=== PATIENT | female | born 1955 | race Caucasian/White ===

== ENCOUNTER → 2016-12-07 | Outpatient (CLI) | payer MEDICARE, MEDICAID ==
[~2016-12-07] MED LIST: DIAZ5 PO; FLUT1SPR5 EACH NARE; HYDR-2376 PO; OXYC1TAB36 PO; PROZ20CA11 PO; SPIRCAP INH; SYMB80AE INH; VENTAER INH; VITA20003
[2016-12-07 09:33] LABS: AUTOMATED NEUTROPHIL # 4.8 TH/MM3 (1.8-7.7); BASOPHIL # 0.1 TH/MM3 (0-0.2); BASOPHIL % 1.3 % (0.0-2.0); EOSINOPHIL # 0.2 TH/MM3 (0-0.4); EOSINOPHIL % 3.1 % (0.0-4.0); HEMO FLAGS DIFF FINAL; LYMPH % 21.9 % (9.0-44.0); LYMPHOCYTE # 1.7 TH/MM3 (1.0-4.8); MEAN CELL VOLUME 88.8 FL (80.0-100.0); MEAN CORPUSCULAR HEMOGLOBIN 31.5 PG (27.0-34.0); MEAN CORPUSCULAR HGB CONC 35.5 % (32.0-36.0); MONO % 10.3 % (0.0-8.0); NEUT % 63.4 % (16.0-70.0); PLATELET COUNT 300 TH/MM3 (150-450); RED BLOOD COUNT 4.28 MIL/MM3 (4.00-5.30); RED CELL DISTRIBUTION WIDTH 12.7 % (11.6-17.2); WHITE BLOOD COUNT 7.7 TH/MM3 (4.0-11.0)
[2016-12-07 10:36] LABS: BACTERIA, URINE RARE /hpf; BLOOD, URINE NEG (NEG); COMMENT (UR) CULT NOT INDICATED; CULTURE IF INDICATED CULT NOT INDICATED; GLUCOSE,URINE NEG (NEG); KETONE, URINE NEG (NEG); MUCUS URINE FEW /lpf (OCC); NITRITE,URINE NEG (NEG); SQUAMOUS EPITHELIAL CELL URINE 1 /hpf (0-5); URINE COLOR YELLOW (YELLW/STRAW)
[2016-12-07 10:37] LABS: ALKALINE PHOSPHATASE 57 U/L (45-117); ALT (GPT) 29 U/L (10-53); ANION GAP 7 MEQ/L (5-15); AST (GOT) 29 U/L (15-37); BICARBONATE 31.1 MEQ/L (21.0-32.0); BLOOD UREA NITROGEN 11 MG/DL (7-18); CHLORIDE 101 MEQ/L (98-107); GLOMERULAR FILTRATION RATE 66 ML/MIN (>89); GLUCOSE,FASTING 96 MG/DL (74-99); LDL CHOLESTEROL 85 MG/DL (0-99); POTASSIUM 4.4 MEQ/L (3.5-5.1); SODIUM (NA) 139 MEQ/L (136-145); TOTAL BILIRUBIN ADULT 0.5 MG/DL (0.2-1.0)
== END ==
LOC: CLAB 08:52
DX: E78.00 Pure hypercholesterolemia, unspecified (principal); I10 Essential (primary) hypertension; E55.9 Vitamin D deficiency, unspecified; R53.1 Weakness; Z12.12 Encounter for screening for malignant neoplasm of rectum; Z79.899 Other long term (current) drug therapy
CPT/HCPCS: 36415; 80053; 80061; 81001; 82306; 82607; 84443; 85025

== ENCOUNTER → 2016-12-11 | Outpatient (CLI) | payer MEDICARE, MEDICAID | LOC: CLAB 13:10 | DX: E78.00 Pure hypercholesterolemia, unspecified (principal); I10 Essential (primary) hypertension; R53.1 Weakness; E55.9 Vitamin D deficiency, unspecified; Z12.12 Encounter for screening for malignant neoplasm of rectum; Z79.899 Other long term (current) drug therapy | CPT/HCPCS: 82272 ==

== ENCOUNTER 2017-02-27 12:22 | Inpatient (IN) | payer MEDICARE, MEDICAID ==
[~2017-02-27] VITALS: Ht 160 cm; Wt 62.3 kg
[2017-02-27] VITALS (7 sets, daily range): BP systolic 148–183; BP diastolic 70–96; PULSE 63–81; RESP 18–22; TEMP 97.7–98.5; O2SAT 95–97
[~2017-02-27 12:22] MED LIST changes: -VITA20003; +VITA20003 PO
--- NOTE | 2017-02-27 12:29 | PD ---
Physical Exam Time Seen by Provider: 12:28 Narrative 61 y/o female with L sided chest tightness, L arm pain, L arm/leg numbness which started at 8 AM. Vital signs reviewed. Seen at triage desk. Awaiting bed placement. Data Data Last Documented VS Vital Signs Date Time Temp Pulse Resp B/P Pulse Ox O2 Delivery O2 Flow Rate FiO2 02/27/17 12:24 98.5 81 18 161/[address] [facility] Medical Record Reviewed: Yes Supervised Visit with MICHELLE: Benjamin Rocha Feb 27, 2017 12:29
[2017-02-27] MEDS ORDERED: SODIUM CHLORIDE 0.9% FLUSH 10 ML FLUSH IVF PRN (13:00)
--- NOTE | 2017-02-27 13:03 | PD ---
HPI Chief Complaint: Chest Pain Time Seen by Provider: 12:46 Travel History International Travel<30 days: No Contact w/Intl Traveler<30days: No Traveled to known affect area: No History of Present Illness HPI The patient was seen and examined in the presence of the nurse. This patient woke up this morning and reports having numbness of her left arm and left leg as well as weakness of her left arm and leg. Symptoms have sort of waxed and waned over the last few hours. Yesterday when she went to bed she felt fine. No history of CVA or TIA. She also reports that this morning she had left shoulder discomfort and tightness in the left side of her chest. Symptoms are of moderate severity. No alleviating factors. Duration is unknown as she woke up this way but it's been at least 5 hours PFSH Past Medical History Cancer: No Cardiovascular Problems: No Diabetes: No Endocrine: No Gastrointestinal Disorders: No Genitourinary: No Hepatitis: No Hiatal Hernia: No Immune Disorder: No Musculoskeletal: Yes (OA) Neurologic: Yes (UNSTEADY GAIT, SHOOTING PAINS DOWN SHOULDER) Reproductive: No Respiratory: Yes Thyroid Disease: No ?: Not Past Surgical History Body Medical Devices: BREAST IMPANTS Genitourinary Surgery: Yes (BLADDER TACK) Gynecologic Surgery: Yes (PAH) Hysterectomy: Yes Social History Alcohol Use: Yes Tobacco Use: No Substance Use: No Allergies-Medications (Allergen,Severity, Reaction): Coded Allergies: Nonsteroidal Anti-Inflammatory Agts (Verified Allergy, Unknown, 02/27/17) Reported Meds & Prescriptions Reported Meds & Active Scripts Active Reported Losartan (Losartan Potassium) 25 Mg Tab 25 Mg PO DAILY Zocor (Simvastatin) 20 Mg Tab 20 Mg PO DAILY Hydrocodone-Acetaminophen 7.5-300 Mg Tab 1 Tab PO Q8HR PRN Vitamin D (Cholecalciferol) 2,000 Unit Tab 2,000 Units PO DAILY Flonase Nasal [place] (Fluticasone Nasal [place]) 50 Mcg/Act [place] 50 Mcg EACH NARE BID Valium (Diazepam) 5 Mg Tab 5 Mg PO BID Symbicort Inh (Budesonide/Formoterol Fumarate) 80-4.5 Mcg/Act Aero 2 Puff INH Q12HR Prozac (Fluoxetine HCl) 20 Mg Cap 20 Mg PO DAILY Spiriva Handihaler (Tiotropium Inh) 18 Mcg Cap 18 Mcg INH DAILY 1 capsule = 18 mcg Ventolin Hfa 18 GM Inh (Albuterol Sulfate) 90 Mcg/Act Aer 2 Puff INH Q4H PRN Review of Systems General / Constitutional: No: Fever Eyes: No: Visual changes HENT: No: Headaches Cardiovascular: Positive: Chest Pain or Discomfort Respiratory: No: Shortness of Breath Gastrointestinal: No: Abdominal Pain Genitourinary: No: Dysuria Musculoskeletal: Positive: Weakness, No: Pain Skin: No Rash Neurologic: Positive: Weakness, Sensory Disturbance Psychiatric: No: Depression Endocrine: No: Polydipsia Hematologic/Lymphatic: No: Easy Bruising Physical Exam Narrative GENERAL: Well-nourished, well-developed patient in no apparent distress. SKIN: Focused skin assessment reveals no rash and nodules. Skin is Warm and dry. HEAD: Atraumatic. Normocephalic. EYES: Pupils equal and round. No scleral icterus. No injection or drainage. ENT: No nasal bleeding or discharge. Mucous membranes pink and moist. NECK: Trachea midline. No JVD. CARDIOVASCULAR: Regular rate and rhythm. No murmur appreciated. RESPIRATORY: No accessory muscle use. Clear to auscultation. Breath sounds equal bilaterally. GASTROINTESTINAL: Abdomen soft, non-tender, nondistended. Hepatic and splenic margins not palpable. MUSCULOSKELETAL: No obvious deformities. No clubbing. No cyanosis. No edema. NEUROLOGICAL: Awake and alert. No obvious cranial nerve deficits. Motor exam reveals symmetric upper extremity strength but there is mild left leg weakness compared to the right. She reports subjective sensory deficit to sharp and light touch over the left leg and foot. Normal speech. PSYCHIATRIC: Appropriate mood and affect; insight and judgment normal. Data Data Last Documented VS Vital Signs Date Time Temp Pulse Resp B/P Pulse Ox O2 Delivery O2 Flow Rate FiO2 02/27/17 14:24 72 19 161/77 95 Room Air 02/27/17 12:24 98.5 Orders Electrocardiogram (02/27/17 12:57) Prothrombin Time / Inr (Pt) (02/27/17 12:57) Act Partial Throm Time (Ptt) (02/27/17 12:57) Complete Blood Count With Diff (02/27/17 12:57) Basic Metabolic Panel (Bmp) (02/27/17 12:57) Creatine Kinase (Cpk) (02/27/17 12:57) Troponin I (02/27/17 12:57) Ct Brain W/O Iv Contrast(Rout) (02/27/17 12:57) Chest, Single Ap (02/27/17 12:57) Ecg Monitoring (02/27/17 12:57) Iv Access Insert/Monitor (02/27/17 12:57) Oximetry (02/27/17 12:57) Blood Glucose (02/27/17 12:57) Sodium Chloride 0.9% Flush (Ns Flush) (02/27/17 13:00) Aspirin (Aspirin) (02/27/17 14:45) Labs Laboratory Tests Test 02/27/17 13:00 White Blood Count 8.8 TH/MM3 Red Blood Count 4.48 MIL/MM3 Hemoglobin 13.4 GM/DL Hematocrit 39.3 % Mean Corpuscular Volume 87.8 FL Mean Corpuscular Hemoglobin 30.0 PG Mean Corpuscular Hemoglobin 34.2 % Concent Red Cell Distribution Width 12.8 % Platelet Count 289 TH/MM3 Mean Platelet Volume 7.7 FL Neutrophils (%) (Auto) 66.2 % Lymphocytes (%) (Auto) 23.4 % Monocytes (%) (Auto) 8.1 % Eosinophils (%) (Auto) 1.8 % Basophils (%) (Auto) 0.5 % Neutrophils # (Auto) 5.8 TH/MM3 Lymphocytes # (Auto) 2.1 TH/MM3 Monocytes # (Auto) 0.7 TH/MM3 Eosinophils # (Auto) 0.2 TH/MM3 Basophils # (Auto) 0.0 TH/MM3 CBC Comment DIFF FINAL Differential Comment Prothrombin Time 11.1 SEC Prothromb Time International 1.0 RATIO Ratio Activated Partial 24.8 SEC Thromboplast Time Sodium Level 139 MEQ/L Potassium Level 3.4 MEQ/L Chloride Level 103 MEQ/L Carbon Dioxide Level 27.5 MEQ/L Anion Gap 9 MEQ/L Blood Urea Nitrogen 14 MG/DL Creatinine 0.82 MG/DL Estimat Glomerular Filtration 71 ML/MIN Rate Random Glucose 119 MG/DL Calcium Level 9.3 MG/DL Total Creatine Kinase 29 U/L Troponin I LESS THAN 0.02 NG/ML MDM Medical Decision Making Medical Screen Exam Complete: Yes Emergency Medical Condition: Yes Medical Record Reviewed: Yes Differential Diagnosis CVA, TIA, intracranial hemorrhage, ACS Narrative Course I have reviewed the patient's electronic medical record. IV placed I reviewed the EKG shows sinus rhythm with no ST elevation I reviewed the chest x-ray which is normal Extended cardiac monitoring shows sinus rhythm without ectopy CBC is normal Metabolic profile is normal CK is normal Troponin is normal Coagulation studies are normal Brain CT shows no hemorrhage. I discussed with radiologist Dr. Michael Escoto. 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 This is most likely an incidental finding and likely chronic but MRI of the brain could give further details. Dr. Scott is paged to discuss Diagnosis Primary Impression: CVA (cerebral vascular accident) Qualified Code: I63.9 - Cerebrovascular accident (CVA), unspecified mechanism Additional Impression: Chest pain Qualified Code: R07.9 - Chest pain, unspecified type Admitting Information Admitting Physician Requests: it Ralph Keith MD Feb 27, 2017 13:03
--- NOTE | 2017-02-27 13:16 | RADRPT ---
EXAM DATE/TIME: 02/27/2017 13:04 [facility] COMPARISON: No previous studies available for comparison. INDICATIONS : Left side numbness today. MEDICAL HISTORY : Chronic obstructive pulmonary disease. SURGICAL HISTORY : None. ENCOUNTER: Initial ACUITY: 1 day PAIN SCORE: 0/10 LOCATION: Bilateral chest FINDINGS: A single view of the chest demonstrates the lungs to be symmetrically aerated without evidence of mas s, infiltrate or effusion. The cardiomediastinal contours are unremarkable. No cervical vertebral f ixation hardware. Osseous structures are intact. CONCLUSION: 1. No acute cardiopulmonary disease. Valdo Chahal MD on February 27, 2017 at 13:14 Board Certified Radiologist. This report was verified electronically.
[2017-02-27 13:18] LABS: AUTOMATED NEUTROPHIL # 5.8 TH/MM3 (1.8-7.7); BASOPHIL % 0.5 % (0.0-2.0); EOSINOPHIL # 0.2 TH/MM3 (0-0.4); EOSINOPHIL % 1.8 % (0.0-4.0); HEMATOCRIT 39.3 % (35.0-46.0); HEMO FLAGS DIFF FINAL; LYMPH % 23.4 % (9.0-44.0); LYMPHOCYTE # 2.1 TH/MM3 (1.0-4.8); MEAN CELL VOLUME 87.8 FL (80.0-100.0); MEAN CORPUSCULAR HGB CONC 34.2 % (32.0-36.0); MONO % 8.1 % (0.0-8.0); NEUT % 66.2 % (16.0-70.0); PLATELET COUNT 289 TH/MM3 (150-450); RED BLOOD COUNT 4.48 MIL/MM3 (4.00-5.30); RED CELL DISTRIBUTION WIDTH 12.8 % (11.6-17.2); WHITE BLOOD COUNT 8.8 TH/MM3 (4.0-11.0)
[2017-02-27 13:28] LABS: APTT (PATIENT) 24.8 SEC (24.3-30.1); PROTHROMBIN TIME - PATIENT 11.1 SEC (9.8-11.6)
[2017-02-27 13:47] LABS: ANION GAP 9 MEQ/L (5-15); BICARBONATE 27.5 MEQ/L (21.0-32.0); BLOOD UREA NITROGEN 14 MG/DL (7-18); CHLORIDE 103 MEQ/L (98-107); GLOMERULAR FILTRATION RATE 71 ML/MIN (>89); POTASSIUM 3.4 MEQ/L (3.5-5.1); SODIUM (NA) 139 MEQ/L (136-145)
[2017-02-27] MEDS ORDERED: ZOCO20TA PO (14:02)
[2017-02-27] MEDS ORDERED: LOSA25TA PO (14:02)
[2017-02-27 14:06] LABS: CREATINE KINASE 29 U/L (26-192)
--- NOTE | 2017-02-27 14:26 | RADRPT ---
EXAM DATE/TIME: 02/27/2017 14:04 This report includes an Addendum and supersedes previous reports for this exam. [facility] COMPARISON: No previous studies available for comparison. INDICATIONS : Substernal chest tightness, with pain radiating down left arm,left face and left side numbness,fall t wo weeks ago. RADIATION DOSE: 30.44 CTDIvol (mGy) MEDICAL HISTORY : Chronic obstructive pulmonary disease. SURGICAL HISTORY : Hysterectomy. ENCOUNTER: Initial ACUITY: 1 day PAIN SCALE: 8/10 LOCATION: cranial TECHNIQUE: Multiple contiguous axial images were obtained of the head. Using automated exposure control and adj ustment of the mA and/or kV according to patient size, radiation dose was kept as low as reasonably a chievable to obtain optimal diagnostic quality images. DICOM format image data is available electro nically for review and comparison. FINDINGS: There is no evidence for intracranial hemorrhage, mass effect, mass lesions, edema, or extra-axial fl uid collections. The visualized bony structures appear intact. The ventricles are normal size for t he patient's age. There are no signs of acute infarction for technique. CONCLUSION: Unremarkable study. Sang South MD on February 27, 2017 at 14:23 Board Certified Radiologist. This report was verified electronically. ADDENDUM: I spoke with Dr. Keith about this patient. The patient has a 0.9 x 1.6 cm lipoma involving the jenny us callosum. There is a small extension of fatty density along the superior margin of the corpus call osum this could suggest previous rupture. I do not see evidence of small fat globules over the high c onvexities. MRI would be of benefit for further assessment. Tor Escoto MD on February 27, 2017 at 14:54 Board Certified Radiologist. This report was verified electronically.
[2017-02-27] MEDS ORDERED: ASPIRIN 325 MG TAB PO ONE (14:45)
[2017-02-27] MEDS ORDERED: SENNOSIDES 8.6 MG TAB PO PRN (15:45)
[2017-02-27] MEDS ORDERED: NALOXONE HCL 0.4 MG/ML AMP IV PRN (15:45)
[2017-02-27] MEDS ORDERED: SODIUM CHLORIDE 0.9% FLUSH 5 ML FLUSH IV FLUSH PRN (15:45)
[2017-02-27] MEDS ORDERED: GLUCAGON 1 MG/ML VIAL OTHER PRN (15:45)
[2017-02-27] MEDS ORDERED: DEXTROSE 50% IN WATER 50 ML VIAL(D50) IV PUSH PRN (15:45)
[2017-02-27] MEDS ORDERED: ENALAPRILAT 1.25 MG/ML VIAL IV PRN (15:45)
[2017-02-27] MEDS ORDERED: DIAZEPAM 5 MG TAB PO PRN (15:45)
[2017-02-27] MEDS ORDERED: POTASSIUM CHLORIDE 10 MEQ CONTROLLED RELEASE TAB PO ONE (15:45)
[2017-02-27] MEDS ORDERED: MAGNESIUM HYDROXIDE SUSP 30 ML CUP PO PRN (15:45)
[2017-02-27] MEDS ORDERED: ONDANSETRON HCL 4 MG/2 ML VIAL IVP PRN (15:45)
[2017-02-27] MEDS ORDERED: ACETAMINOPHEN 325 MG TAB PO PRN (15:45)
[2017-02-27] MEDS ORDERED: LACTULOSE SYRUP 20 GM/30 ML CUP PO PRN (15:45)
[2017-02-27] MEDS ORDERED: ALBUTEROL SULFATE 90 MCG/ACT HFA 18 GM INHALER INH PRN (16:00)
[2017-02-27] MEDS: INSULIN ASPART SUPPLEMENTAL SCALE SQ SCH ×2 (17:00→21:00)
[2017-02-27] MEDS: SODIUM CHLOR 0.9% 1000 ML INJ 1,000 ML IV SCH (17:06)
[2017-02-27 17:24] LABS: AMPHETAMINE, URINE NEG (NEG); BARBITURATES, URINE NEG (NEG); COCAINE, URINE NEG (NEG)
[2017-02-27 17:38] LABS: MAGNESIUM 1.9 MG/DL (1.5-2.5)
[2017-02-27 17:46] LABS: CREATINE KINASE 37 U/L (26-192)
--- NOTE | 2017-02-27 17:57 | HHI.HP ---
HPI Service [facility] Primary Care Physician Non-Staff Admission Diagnosis acute ischemic CVA, chest pain Diagnoses: Chief Complaint: Left sided weakness, numbness Travel History International Travel<30 Days: No Contact w/Intl Traveler <30 Da: No Traveled to Known Affected Are: No History of Present Illness Written by Nate Champion, acting as scribe for Dr. Scott on 02/27/17 at 17: 33. Patient is a 61-year-old female with primary medical history of hypertension, hyperlipidemia, osteoarthritis, COPD, anxiety who came into the hospital for evaluation of left-sided weakness and numbness. Patient states that this morning at around 8:00 she felt left-sided weakness, and went completely numb on the left side that she sat down thinking that it will go away. She stood up and started walking again but she felt weak. She denies any falls. Daughter states that she witnessed what had happened. But never noticed any facial droop and slurring of speech. However she noted her mother being scared and not talking as much. States she was not confused. As per patient, she also felt chest tightness at the same time with a left-sided weakness. States that chest was tight across towards the left side with left arm being tight, when the tightness occurs she rates it as 9/10. She states that she took all of her medications this morning including her blood pressure medication and cholesterol medication. Patient also verified her past medical and surgical history. She states that once being at the hospital, she felt that she is better. She now denies any numbness. Continues to have slight left sided weakness but it was improved compared to earlier today. She was able to walk to the bathroom with minimal assist and without difficulty walking. Denies pain and discomfort. Denies SOB/ dyspnea. Denies chest pain, palpitations, headaches, dizziness. Denies fevers, chills, n/v/d. Denies dysuria. Review of Systems Except as stated in HPI: all other systems reviewed are Neg Past Family Social History Past Medical History Hypertension Hyperlipidemia Osteoarthritis COPD Anxiety Scoliosis Past Surgical History Breast implants Hysterectomy Neck surgery Reported Medications Reported Meds & Active Scripts Active Reported Losartan (Losartan Potassium) 25 Mg Tab 25 Mg PO DAILY Zocor (Simvastatin) 20 Mg Tab 20 Mg PO DAILY Hydrocodone-Acetaminophen 7.5-300 Mg Tab 1 Tab PO Q8HR PRN Vitamin D (Cholecalciferol) 2,000 Unit Tab 2,000 Units PO DAILY Flonase Nasal [place] (Fluticasone Nasal [place]) 50 Mcg/Act [place] 50 Mcg EACH NARE BID Valium (Diazepam) 5 Mg Tab 5 Mg PO BID Symbicort Inh (Budesonide/Formoterol Fumarate) 80-4.5 Mcg/Act Aero 2 Puff INH Q12HR Prozac (Fluoxetine HCl) 20 Mg Cap 20 Mg PO DAILY Spiriva Handihaler (Tiotropium Inh) 18 Mcg Cap 18 Mcg INH DAILY 1 capsule = 18 mcg Ventolin Hfa 18 GM Inh (Albuterol Sulfate) 90 Mcg/Act Aer 2 Puff INH Q4H PRN Allergies: Coded Allergies: Nonsteroidal Anti-Inflammatory Agts (Verified Allergy, Unknown, 02/27/17) Active Ordered Medications Current Medications Medications (Trade) Dose Ordered Sig/James Route Start Time Stop Time Status Last Admin (NS Flush) 2 ml BID IV FLUSH 02/27/17 21:00 IV Flush 2 ml 2 ml UNSCH PRN IV FLUSH 02/27/17 15:45 (NS 1000 ml Inj) 1,000 ml @ 70 mls/hr [id number] IV 02/27/17 15:36 02/27/17 17:06 (Vasotec Inj) 1.25 mg Q4H PRN IV 02/27/17 15:45 (Aspirin) 325 mg DAILY PO 02/28/17 09:00 (NovoLOG SUPPLEMENTAL SCALE) 1 ACHS SQ 02/27/17 16:00 (D50w (Vial) Inj) 50 ml UNSCH PRN IV PUSH 02/27/17 15:45 (Glucagon Inj) 1 mg UNSCH PRN OTHER 02/27/17 15:45 (Ventolin Hfa Inh) 2 puff Q4H PRN INH 02/27/17 16:00 (Symbicort 80-4.5 Mcg Inh) 2 puff Q12HR INH 02/27/17 21:00 (Valium) 5 mg BID PRN PO 02/27/17 15:45 (Spiriva Inh) 18 mcg DAILY INH 02/28/17 09:00 ([place] 7.5-325 Mg) 1 tab Q8H PRN PO 02/27/17 16:00 (Pravachol) 40 mg DAILY PO 02/28/17 09:00 (Tylenol) 650 mg Q4H PRN PO 02/27/17 15:45 (Zofran Inj) 4 mg Q6H PRN IVP 02/27/17 15:45 (Narcan Inj) 0.4 mg UNSCH PRN IV 02/27/17 15:45 (Jill-Colace) 1 tab BID PO 02/27/17 21:00 (Milk Of Magnesia Liq) 30 ml Q12H PRN PO 02/27/17 15:45 (Senokot) 17.2 mg Q12H PRN PO 02/27/17 15:45 (Lactulose Liq) 30 ml DAILY PRN PO 02/27/17 15:45 Family History States brother had clogged artery, status post CABG Social History Almost every night alcohol use Denies tobacco use Denies illicit drug use Physical Exam Vital Signs Vital Signs Date Time Temp Pulse Resp B/P Pulse Ox O2 Delivery O2 Flow Rate FiO2 02/27/17 15:46 96 21 02/27/17 14:24 72 19 161/77 95 Room Air 02/27/17 12:30 97 Room Air 02/27/17 12:24 98.5 81 18 161/88 97 Room Air Physical Exam GENERAL: This is a well-nourished, younger than stated age, well-developed patient, in no apparent distress. SKIN: No rashes, ecchymoses or lesions. Cool and dry. HEAD: Atraumatic. Normocephalic. No temporal or scalp tenderness. EYES: Pupils equal round and reactive. Extraocular motions intact. No scleral icterus. No injection or drainage. ENT: Nose without bleeding. Throat without erythema. Uvula midline. Airway patent. NECK: Trachea midline. No JVD or lymphadenopathy. CARDIOVASCULAR: Regular rate and rhythm without murmurs, gallops, or rubs. RESPIRATORY: Expiratory wheezes. No rales, or rhonchi. GASTROINTESTINAL: Abdomen soft, nondistended. Left lower quadrant tenderness to palpation. Bowel sounds active 4 MUSCULOSKELETAL: Extremities without clubbing, cyanosis, or edema. NEUROLOGICAL: Awake and alert. Cranial nerves II through XII intact. Decreased sensation left cheek, left lower extremity. Bilateral upper extremity 5 over 5. Bilateral lower extremity 4 over 5, left dorsiflexion weaker than the right. Normal speech. Laboratory Laboratory Tests Test 02/27/17 13:00 White Blood Count 8.8 Red Blood Count 4.48 Hemoglobin 13.4 Hematocrit 39.3 Mean Corpuscular Volume 87.8 Mean Corpuscular Hemoglobin 30.0 Mean Corpuscular Hemoglobin 34.2 Concent Red Cell Distribution Width 12.8 Platelet Count 289 Mean Platelet Volume 7.7 Neutrophils (%) (Auto) 66.2 Lymphocytes (%) (Auto) 23.4 Monocytes (%) (Auto) 8.1 Eosinophils (%) (Auto) 1.8 Basophils (%) (Auto) 0.5 Neutrophils # (Auto) 5.8 Lymphocytes # (Auto) 2.1 Monocytes # (Auto) 0.7 Eosinophils # (Auto) 0.2 Basophils # (Auto) 0.0 CBC Comment DIFF FINAL Differential Comment Prothrombin Time 11.1 Prothromb Time International 1.0 Ratio Activated Partial 24.8 Thromboplast Time Sodium Level 139 Potassium Level 3.4 Chloride Level 103 Carbon Dioxide Level 27.5 Anion Gap 9 Blood Urea Nitrogen 14 Creatinine 0.82 Estimat Glomerular Filtration 71 Rate Random Glucose 119 Calcium Level 9.3 Total Creatine Kinase 29 Troponin I LESS THAN 0.02 Result Diagram: 02/27/17 1300 02/27/17 1300 Imaging EKG tracing interpreted by me with poor R wave no ST changes CXR image interpreted by me w/o acute disease Last Impressions Head CT 02/27/17 1257 Signed Impressions: Service Date/Time: Monday, February 27, 2017 14:04 - CONCLUSION: Unremarkable study. KAbdiel South MD ADDENDUM: I spoke with Dr. Keith about this patient. 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 There is a small extension of fatty density along the superior margin of the corpus callosum this could suggest previous rupture. I do not see evidence of small fat globules over the high convexities. MRI would be of benefit for further assessment. Tor Escoto MD Chest X-Ray 02/27/17 1257 Signed Impressions: Service Date/Time: Monday, February 27, 2017 13:04 - CONCLUSION: 1. No acute cardiopulmonary disease. Valdo Chahal MD Assessment and Plan Problem List: (1) CVA (cerebral vascular accident) ICD Code: I63.9 Status: Acute (2) Chest pain ICD Code: R07.9 Status: Acute (3) DDD (degenerative disc disease), cervical ICD Code: M50.30 Status: Acute Assessment and Plan Patient is a 61-year-old female with primary medical history of hypertension, hyperlipidemia, osteoarthritis, COPD, anxiety who came into the hospital for evaluation of left-sided weakness and numbness. CVA vs tia Stroke work-up - Patient was complaining of numbness, and weakness on the left side which has improved on exam. Medical history includes hypertension and hyperlipidemia increasing her risk for stroke - CT of the head showed unremarkable study. 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 There is a small extension of fatty density along the superior margin of the corpus callosum this could suggest previous rupture. As per recommendation of radiologist, no evidence of small fat cool to use over the high convexities. MRI would be beneficial for further assessment. - Patient may not be able to do MRI as her previous cervical surgery has rods and plate placement - Start IV fluids, ASA 325 mg daily - Permissive hypertension to increase perfusion - Check echo - Check lipid panel, hemoglobin A1c - Consult neurology - PT/OT/ST to evaluate and treat Chest pain, rule out ACS - Patient is complaining of tightness in the chest radiating towards her arm - EKG sinus rhythm with poor R waves, no ST changes noted - CK, troponin negative - Check serial enzymes - Aspirin 325 mg daily - Repeat labs tomorrow CBC, BMP HTN - Hold off home medications for blood pressure for now - Permissive hypertension for now Hypokalemia - Potassium replacement done - Check magnesium - Repeat BMP tomorrow Hyperglycemia - Check fasting glucose - Check hemoglobin A1c Alcohol Use, almost daily - CIWA DVT prop SCDs, hold off with chemical prophylaxis for now until cleared by neurology Code Status Full code Discussed Condition With Patient, daughter, nursing, ED attending This note was transcribed by linus Champion. I, Dr. Markus Scott personally performed the history, physical exam, and medical decision making; and confirmed the accuracy of the information in the transcribed note. Authenticated by Dr. Markus Scott on 02/27/17 at 17:33. Physician Certification 2 Midnight Certification Type: Admission for Inpatient Services Order for Inpatient Services The services are ordered in accordance with Medicare regulations or non- Medicare payer requirements, as applicable. In the case of services not specified as inpatient-only, they are appropriately provided as inpatient services in accordance with the 2-midnight benchmark. Estimated LOS (days): 2 days is the estimated time the patient will need to remain in the hospital, assuming treatment plan goals are met and no additional complications. Post-Hospital Plan: Not yet determined Problem Qualifiers (1) CVA (cerebral vascular accident): Qualified Code: I63.9 - Cerebrovascular accident (CVA), unspecified mechanism (2) Chest pain: Qualified Code: R07.9 - Chest pain, unspecified type Nate Lovelace Feb 27, 2017 17:56 Markus Scott MD Feb 27, 2017 19:58
--- NOTE | 2017-02-27 18:33 | RADRPT ---
EXAM DATE/TIME: 02/27/2017 17:22 [facility] COMPARISON: No previous studies available for comparison. INDICATIONS : Cerebrovascular accident. Left arm and leg numbness and weakness. MEDICAL HISTORY : Chronic obstructive pulmonary disease. SURGICAL HISTORY : Hysterectomy. Bladder surgery. ENCOUNTER: Initial ACUITY: 1 day PAIN SCORE: 0/10 LOCATION: Bilateral neck PEAK SYSTOLIC VELOCITIES (cm/sec): ICA/CCA RATIO: Right: 1.7 Left: 1.3 ICA: Right: 100 Left: 94 CCA: Right: 80 Left: 91 ECA: Right: 60 Left: 74 VERTEBRAL: Right: 84 antegrade Left: 43 antegrade Elevated flow velocities and ICA/CCA ratios have been found to correlate with increased degrees of vessel stenosis, calculated as percentage of diameter relative to a normal segment of distal ICA/CCA FINDINGS: RIGHT CAROTID: No significant stenosis is visualized. The waveforms are within normal limits. LEFT CAROTID: No significant stenosis is visualized. The waveforms are within normal limits. VERTEBRAL ARTERIES: Antegrade flow is seen in both vertebral arteries. MISCELLANEOUS: None. CONCLUSION: No evidence of flow-limiting carotid stenosis. Kevin Mujica MD on February 27, 2017 at 18:31 Board Certified Radiologist. This report was verified electronically.
[2017-02-27] MEDS: DOCUSATE SODIUM 50 MG/SENNA 8.6 MG TAB PO SCH (21:06)
[2017-02-27] MEDS: BUDESONIDE-FORMOTEROL 80/4.5 MCG INHALER INH SCH (21:06)
[2017-02-27] MEDS: SODIUM CHLORIDE 0.9% FLUSH 5 ML FLUSH IV FLUSH SCH (21:08)
[2017-02-28] VITALS (9 sets, daily range): BP systolic 118–165; BP diastolic 58–87; PULSE 63–81; RESP 17–20; TEMP 97.8–98; O2SAT 94–98
[2017-02-28 01:20] LABS: CREATINE KINASE 28 U/L (26-192)
[2017-02-28] MEDS: INSULIN ASPART SUPPLEMENTAL SCALE SQ SCH ×4 (07:00→21:00)
[2017-02-28] MEDS ORDERED: PNEUMOCOCCAL POLYVALENT INJ 25 MCG/0.5 ML SYR IM ONE (09:00)
[2017-02-28] MEDS: SODIUM CHLORIDE 0.9% FLUSH 5 ML FLUSH IV FLUSH SCH ×2 (09:00→20:52)
[2017-02-28] MEDS: TIOTROPIUM BROMIDE 18 MCG INH INH SCH (09:00)
[2017-02-28] MEDS: BUDESONIDE-FORMOTEROL 80/4.5 MCG INHALER INH SCH ×2 (09:00→21:10)
--- NOTE | 2017-02-28 09:39 | RADRPT ---
EXAM DATE/TIME: 02/28/2017 08:42 [facility] COMPARISON: CT BRAIN W/O CONTRAST, February 27, 2017, 14:04. INDICATIONS : Left sided numbness. MEDICAL HISTORY : Chronic obstructive pulmonary disease. Hypertension. Hypercholesterolemia. SURGICAL HISTORY : Fusion, cervical. Hysterectomy. bladder lift ENCOUNTER: Subsequent ACUITY: 1 day PAIN SCORE: 0/10 LOCATION: cranial TECHNIQUE: Multiplanar, multisequence MRI of the brain was performed without contrast. FINDINGS: The diffusion restriction images demonstrate a single punctate area of abnormal diffusion signal in t he white matter of the right parietal cortex. This would be consistent with a punctate area of lacuna r infarct. No other areas of abnormal diffusion signal are seen. The T2 weighted images demonstrate some punctate areas of increased T2 signal in the white matter mos t consistent with mild microvascular ischemic demyelinative change. The T1 sagittal imaging demonstrates an area of fat signal arising inferior to the splenium of the co rpus callosum and extending along the posterior aspect of splenium of the corpus callosum and along t he superior aspect of the callosum.. Findings would be consistent with a lipoma of the corpus callosu m. There is no significant mass effect associated with this. The ventricles are normal in size and configuration. No abnormal extra-axial fluid collections are se en. The appearance of the posterior fossa is unremarkable. The visualized portion of sinus and orbit are intact. CONCLUSION: 1. Punctate area of lacunar infarct in the centrum semiovale on the right. 2. 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 This measures 6 mm in maximum thickness. Tor Escoto MD on February 28, 2017 at 9:26 Board Certified Radiologist. This report was verified electronically.
--- NOTE | 2017-02-28 09:39 | HHI.PR ---
Subjective Remarks Follow-up CVA. Improving numbness and weakness status post PT and neurology evaluation. Seen with daughter. Discussed with neurology and RN Objective Vitals Vital Signs Date Time Temp Pulse Resp B/P Pulse Ox O2 Delivery O2 Flow Rate FiO2 02/28/17 08:00 97.9 81 18 140/87 94 02/28/17 04:24 98.0 69 18 153/74 96 02/28/17 00:00 Room Air 02/27/17 22:56 67 02/27/17 22:20 97.7 63 18 148/70 97 02/27/17 22:00 Room Air 02/27/17 19:27 69 22 183/96 97 Room Air 02/27/17 15:46 96 21 02/27/17 14:24 72 19 161/77 95 Room Air 02/27/17 12:30 97 Room Air 02/27/17 12:24 98.5 81 18 161/88 97 Room Air I/O 02/27/17 02/27/17 02/27/17 02/28/17 02/28/17 02/28/17 07:00 15:00 23:00 07:00 15:00 23:00 Intake Total 980 ml Output Total 800 ml Balance 180 ml Intake Oral 980 ml Output Urine Total 800 ml # Voids 1 1 # Bowel Movements 0 Result Diagram: 02/27/17 1300 02/27/17 1300 Imaging Last Impressions Head CT 02/27/17 1257 Signed Impressions: Service Date/Time: Monday, February 27, 2017 14:04 - CONCLUSION: Unremarkable study. Sang South MD ADDENDUM: I spoke with Dr. Keith about this patient. 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 There is a small extension of fatty density along the superior margin of the corpus callosum this could suggest previous rupture. I do not see evidence of small fat globules over the high convexities. MRI would be of benefit for further assessment. Tor Escoto MD Chest X-Ray 02/27/17 1257 Signed Impressions: Service Date/Time: Monday, February 27, 2017 13:04 - CONCLUSION: 1. No acute cardiopulmonary disease. Valdo Chahal MD Carotid Artery Ultrasound 02/27/17 0000 Signed Impressions: Service Date/Time: Monday, February 27, 2017 17:22 - CONCLUSION: No evidence of flow-limiting carotid stenosis. Kevin Mujica MD Objective Remarks GENERAL: This is a well-nourished, younger than stated age, well-developed patient, in no apparent distress. SKIN: No rashes, ecchymoses or lesions. Cool and dry. HEAD: Atraumatic. Normocephalic. No temporal or scalp tenderness. EYES: Pupils equal round and reactive. Extraocular motions intact. No scleral icterus. No injection or drainage. ENT: Nose without bleeding. Throat without erythema. Uvula midline. Airway patent. NECK: Trachea midline. No JVD or lymphadenopathy. CARDIOVASCULAR: Regular rate and rhythm without murmurs, gallops, or rubs. RESPIRATORY: Expiratory wheezes. No rales, or rhonchi. GASTROINTESTINAL: Abdomen soft, nondistended. Left lower quadrant tenderness to palpation. Bowel sounds active 4 MUSCULOSKELETAL: Extremities without clubbing, cyanosis, or edema. NEUROLOGICAL: Awake and alert. Cranial nerves II through XII intact. Decreased sensation left cheek, left lower extremity. Bilateral upper extremity 5 over 5. Bilateral lower extremity 4 over 5, left dorsiflexion weaker than the right. Normal speech. Procedures none A/P Problem List: (1) CVA (cerebral vascular accident) ICD Code: I63.9 Status: Acute (2) Chest pain ICD Code: R07.9 Status: Acute (3) DDD (degenerative disc disease), cervical ICD Code: M50.30 Status: Acute Assessment and Plan Patient is a 61-year-old female with primary medical history of hypertension, hyperlipidemia, osteoarthritis, COPD, anxiety who came into the hospital for evaluation of left-sided weakness and numbness. CVA with small right lacunar infarct. Telemetry without arrhythmia. Discussed with neurology, patient can be discharged if she remains stable and echocardiogram unremarkable. Outpatient Holter monitor. Discontinue permissive hypertension and restart BP medication losartan with hold parameters. Continue aspirin, statin and follow-up echocardiogram and A1c. Risk factor modification - PT/OT/ST to follow Chest pain, ruled out for ACS - Aspirin 325 mg daily - Needs stress test when cleared by neurology HTN - Restart ARB Hypokalemia - Potassium replacement done Hyperglycemia - F/u hemoglobin A1c Alcohol Use, almost daily - CIWA DVT prop SCDs, hold off with chemical prophylaxis for now until cleared by neurology Discharge Planning Discharge if echocardiogram unremarkable and patient remains stable Problem Qualifiers (1) CVA (cerebral vascular accident): Qualified Code: I63.9 - Cerebrovascular accident (CVA), unspecified mechanism (2) Chest pain: Qualified Code: R07.9 - Chest pain, unspecified type Markus Scott MD Feb 28, 2017 09:39 Alcohol Use, almost daily - CIWA DVT prop SCDs, hold off with chemical prophylaxis for now until cleared by neurology Problem Qualifiers (1) CVA (cerebral vascular accident): Qualified Code: I63.9 - Cerebrovascular accident (CVA), unspecified mechanism (2) Chest pain: Qualified Code: R07.9 - Chest pain, unspecified type Markus Scott MD Feb 28, 2017 09:39
[2017-02-28] MEDS ORDERED: LORazepam 1 MG TAB PO PRN (09:45)
[2017-02-28] MEDS ORDERED: LORazepam 2 MG TAB PO PRN (09:45)
[2017-02-28] MEDS ORDERED: LORazepam 2 MG/ML VIAL IV PUSH PRN ×4 (09:45)
[2017-02-28] MEDS ORDERED: FLUMAZENIL 0.5 MG/5 ML VIAL IV PUSH PRN (09:45)
[2017-02-28] MEDS ORDERED: HALOPERIDOL LACTATE 5 MG/ML AMP IM PRN (09:45)
[2017-02-28] MEDS: ASPIRIN 325 MG TAB PO SCH (09:50)
[2017-02-28] MEDS: PRAVASTATIN SOD 40 MG TAB PO SCH (09:50)
[2017-02-28] MEDS: DOCUSATE SODIUM 50 MG/SENNA 8.6 MG TAB PO SCH ×2 (09:50→20:53)
[2017-02-28 10:00] LABS: HDL CHOLESTEROL 55.5 MG/DL (40.0-60.0); LDL CHOLESTEROL 74 MG/DL (0-99)
--- NOTE | 2017-02-28 10:40 | RADRPT ---
EXAM DATE/TIME: 02/28/2017 08:42 [facility] COMPARISON: MRI BRAIN W/O CONTRAST, February 28, 2017, 8:42. INDICATIONS : Left sided numbness. MEDICAL HISTORY : Chronic obstructive pulmonary disease. Hypertension. Hypercholesterolemia. SURGICAL HISTORY : Hysterectomy. Fusion, cervical. bladder lift ENCOUNTER: Subsequent ACUITY: 1 day PAIN SCORE: 0/10 LOCATION: cranial Please note a normal MRA of the brain does not entirely exclude the possibility of a small aneurysm, nor the possibility of distal intracranial vessel disease. TECHNIQUE: 3D time of flight MRA was performed. Source images, multiplanar STS MIP, and 3D volume MIP reconstru ctions were reviewed. FINDINGS: There is excellent visualization of the major intracranial arteries out to the second-order branch ve ssels. There is no evidence for aneurysm, vessel truncation or stenosis, and no evidence for vascula r malformation. Again noted is a small lipoma of the spine and of the corpus callosum. CONCLUSION: 1. Negative examination. Tor Escoto MD on February 28, 2017 at 10:36 Board Certified Radiologist. This report was verified electronically.
--- NOTE | 2017-02-28 11:52 | MB ---
cc: BERENICE KLINE M.D. DATE OF CONSULTATION: 02/28/2017 DATE OF : 1955 REASON FOR CONSULTATION Probable stroke. HISTORY OF PRESENT ILLNESS This is a 61-year-old woman with a history of hypertension, hyperlipidemia, osteoarthritis, COPD, anxiety, who comes in because of sudden onset of left-sided numbness and weakness. She states it started about 8 o'clock in the morning. The left side went numb and then it went away. She felt weak when she was walking. There was no facial droop or slurring of speech, no confusion. She seems to be back to her baseline currently. Did not come in apparently as a Stroke Alert or the window of opportunity for TPA. She did have an MRI of the brain showing an acute lacune right centrum semiovale. PAST MEDICAL HISTORY As stated. PAST SURGICAL HISTORY 1. Cervical spine surgery with Dr. Mays. 2. Hysterectomy. 3. Breast implants. MEDICATIONS Home medicines are: 1. Losartan. 2. Zocor. 3. [place]. 4. Vitamin-D. 5. Flonase. 6. Valium. 7. Symbicort. 8. Prozac. 9. Spiriva. 10.Ventolin. ALLERGIES NONSTEROIDAL ANTI-INFLAMMATORY AGENTS, unknown what type of allergy. Please note her PCP is Dr. Enrique I believe of [facility] in [place]. FAMILY HISTORY Brother had arterial disease, bypass surgery. SOCIAL HISTORY She drinks alcohol almost every night. No tobacco, quit 27 years ago. No illicit drugs. PHYSICAL EXAMINATION VITAL SIGNS: Temperature 97.9, pulse 81, respiratory rate 18, blood pressure 140/87, satting 94% on room air. CURRENT VITALS: Her blood pressure is still slightly elevated. NECK: Supple. No carotid bruits auscultated. HEART: Regular. LUNGS: Appear clear. NEUROLOGIC: She is awake and alert. She is oriented and fluent. No aphasia or dysarthria. Pupils are reactive. Visual hedrick full. Face symmetrical. Tongue midline. Normal facial sensation bilaterally. Motor-jensen there is no drift or leg lag. Sensory is normal. DTRs are brisk throughout. Mild Keating's on the right. Both toes withdraw. Sensory is intact. Gait is withheld for PT. IMAGING MRI: Acute lacune right centrum semiovale. Lipoma in the corpus callosum. Carotid ultrasound was negative. MRA of the [place] did not show any intracranial disease or stenosis. LABORATORY Cholesterol 152, LDL 74, triglycerides 138, HDL 55.5. IMPRESSION/RECOMMENDATIONS The recommendations are to continue her on aspirin therapy. She is already on a statin. I would continue that. Thiamine and folic acid would continue. Continue her medicines for her COPD. Outpatient Holter monitor for possible paroxysmal atrial fibrillation. The patient is advised on risk factors. Blood pressure likely may have been the culprit here, small vessel disease. Blood pressure needs to be adequately controlled. If her echo is unremarkable and she is stable, from my perspective can be discharged home with outpatient PT and OT if indicated. Have her follow-up with her primary care in one week and with neurology in two weeks. MD NORMA Vargas/AGNES /11:26 AM /11:36 AM
[2017-02-28] MEDS: ACETAMINOPHEN/HYDROcodone 325 MG/7.5 MG TAB PO PRN ×2 (11:57→20:51)
[2017-02-28] MEDS ORDERED: GNP100TA3 PO (12:18)
[2017-02-28] MEDS ORDERED: ASPI325T PO (12:18)
[2017-02-28] MEDS ORDERED: FOLI1TAB6 PO (12:18)
--- NOTE | 2017-02-28 12:19 | HHI.DCPOC ---
Discharge Care Plan Diagnosis: (1) CVA (cerebral vascular accident) Your Health Problems Are: Difficulty with ADL Exercise Tolerance Goals to Promote Your Health * To prevent worsening of your condition and complications * To maintain your health at the optimal level Directions to Meet Your Goals Take your medications as prescribed Follow your dietary instruction Follow activity as directed Keep your appointments as scheduled Take your immunizations and boosters as scheduled If your symptoms worsen call your PCP, if no PCP go to Urgent Care Center or Emergency Room Smoking is Dangerous to Your Health. Avoid second hand smoke Call the 24-hour hour crisis hotline for domestic abuse at Markus Scott MD Feb 28, 2017 12:18
--- NOTE | 2017-02-28 12:19 | HHI.FF ---
Face to Face Verification Diagnosis: (1) CVA (cerebral vascular accident) Physical Therapy Order: Evaluate and Treat, Improve ambulation, Strength and gait training I have seen patient Nahed Antonio on 02/28/17. My clinical findings support the need for the requested home health care services because: Ltd mobility - disease progression Deconditioned w/ increased weakness Med compliance is questionable I certify that my clinical findings support that this patient is homebound because: Unsteady gait/balance Markus Scott MD Feb 28, 2017 12:19
[2017-02-28] MEDS ORDERED: GETGO ROLLING W1 MI1 (12:23)
[2017-02-28] MEDS ORDERED: LOSARTAN 25 MG TAB PO SCH (14:00)
--- NOTE | 2017-02-28 17:03 | EKG ---
Date Performed: 02/27/2017 Time Performed: 13:18:32 PTAGE: 61 years EKG: Sinus rhythm ANTEROSEPTAL MYOCARDIAL INFARCTION ABNORMAL ECG PREVIOUS TRACING : 05/18/2016 13.41 Compared to prior tracing no significant change DOCTOR: Gretta Villavicencio Interpretating Date/Time 02/28/2017 17:01:54
[2017-02-28 17:27] LABS: HEMOGLOBIN A1b 1.4 %; HEMOGLOBIN Ao 86.3 %; HEMOGLOBIN LA1C 1.9 %; HEMOGLOBIN P3 3.4 %
--- NOTE | 2017-02-28 17:59 | RADRPT ---
EXAM DATE/TIME: 02/28/2017 17:39 [facility] COMPARISON: MRI BRAIN W/O CONTRAST, February 28, 2017, 8:42. INDICATIONS : Patient complains of numbness left side of face. RADIATION DOSE: 30.50 CTDIvol (mGy) MEDICAL HISTORY : Chronic obstructive pulmonary disease. SURGICAL HISTORY : Hysterectomy. bladder tack ENCOUNTER: Subsequent ACUITY: 2 days PAIN SCALE: 0/10 LOCATION: cranial TECHNIQUE: Multiple contiguous axial images were obtained of the head. Using automated exposure control and adj ustment of the mA and/or kV according to patient size, radiation dose was kept as low as reasonably a chievable to obtain optimal diagnostic quality images. DICOM format image data is available electro nically for review and comparison. FINDINGS: There is no evidence for intracranial hemorrhage, mass effect, mass lesions, edema, or extra-axial fl uid collections. The visualized bony structures appear intact. The ventricles are normal size for t he patient's age. There are no signs of acute infarction for technique. Again noted is a lipoma deborah cent to the falx and corpus callosum. CONCLUSION: Stable examination without acute hemorrhage or mass effect. Sang South MD on February 28, 2017 at 17:56 Board Certified Radiologist. This report was verified electronically.
--- NOTE | 2017-02-28 18:40 | ECHRPT ---
Indication: CONCLUSIONS The left ventricular systolic function is low normal with an estimated ejection fraction in the rang e of 50- 55%. Normal left ventricular size. Wall thickness is normal. There is mild tricuspid valve regurgitation. The estimated pulmonary arterial pressure is 35 mmHg. BP: 153 / 74 HR: 69 Rhythm: Sinus MEASUREMENTS (Male / Female) Normal Values Technical Quality:Good 2D ECHO LV Diastolic Diameter PLAX 4.3 cm 4.2 - 5.9 / 3.9 - 5.3 cm LV Systolic Diameter PLAX 3.5 cm IVS Diastolic Thickness 0.9 cm 0.6 - 1.0 / 0.6 - 0.9 cm LVPW Diastolic Thickness 0.9 cm 0.6 - 1.0 / 0.6 - 0.9 cm LV Relative Wall Thickness 0.4 LVOT Diameter 2.0 cm LA Systolic Diameter LX 2.7 cm 3.0 - 4.0 / 2.7 - 3.8 cm M-MODE Aortic Root Diameter MM 2.8 cm AV Cusp Separation MM 1.9 cm DOPPLER AV Peak Velocity 124.0 cm/s AV Peak Gradient 6.2 mmHg LVOT Peak Velocity 80.0 cm/s LVOT Peak Gradient 2.6 mmHg AV Area Cont Eq pk 2.0 cm Mitral E Point Velocity 86.9 cm/s Mitral A Point Velocity 69.6 cm/s Mitral E to A Ratio 1.2 LV E' Lateral Velocity 11.2 cm/s Mitral E to LV E' Lateral Ratio 7.8 LV E' Septal Velocity 6.5 cm/s Mitral E to LV E' Septal Ratio 13.3 TR Peak Velocity 252.0 cm/s TR Peak Gradient 25.4 mmHg PV Peak Velocity 132.0 cm/s PV Peak Gradient 7.0 mmHg FINDINGS LEFT VENTRICLE The left ventricular systolic function is low normal with an estimated ejection fraction in the rang e of 50- 55%. Normal left ventricular size. Wall thickness is normal. TRICUSPID VALVE There is mild tricuspid valve regurgitation. The estimated pulmonary arterial pressure is 35 mmHg. Gretta Villavicencio MD, FACC (Electronically Signed) Final Date:28 February 2017 18:38
[2017-02-28] MEDS: SODIUM CHLOR 0.9% 1000 ML INJ 1,000 ML IV SCH (20:52)
[2017-03-01] VITALS: BP 138/70; PULSE 64; RESP 18; TEMP 97.9; O2SAT 96
[2017-03-01 04:00] VITALS: BP 126/59; PULSE 65; RESP 18; TEMP 97.8; O2SAT 96
[2017-03-01] MEDS: INSULIN ASPART SUPPLEMENTAL SCALE SQ SCH (05:27)
[2017-03-01 08:00] VITALS: BP 130/77; PULSE 77; RESP 18; TEMP 98.2; O2SAT 99
[2017-03-01] MEDS: ACETAMINOPHEN/HYDROcodone 325 MG/7.5 MG TAB PO PRN (08:16)
[2017-03-01] MEDS: PRAVASTATIN SOD 40 MG TAB PO SCH (08:17)
[2017-03-01] MEDS: DOCUSATE SODIUM 50 MG/SENNA 8.6 MG TAB PO SCH (08:17)
[2017-03-01] MEDS: ASPIRIN 325 MG TAB PO SCH (08:18)
[2017-03-01] MEDS ORDERED: THIAMINE HCL 100 MG TAB PO SCH (09:00)
[2017-03-01] MEDS ORDERED: MULTIVITAMINS/MINERALS THERAPEUTIC TAB PO SCH (09:00)
[2017-03-01] MEDS ORDERED: FLUoxetine HCL 20 MG CAP PO SCH (09:00)
[2017-03-01] MEDS: SODIUM CHLORIDE 0.9% FLUSH 5 ML FLUSH IV FLUSH SCH (09:00)
[2017-03-01] MEDS ORDERED: FOLIC ACID 1 MG TAB PO SCH (09:00)
[2017-03-01] MEDS: TIOTROPIUM BROMIDE 18 MCG INH INH SCH (09:39)
[2017-03-01] MEDS: BUDESONIDE-FORMOTEROL 80/4.5 MCG INHALER INH SCH (09:40)
--- NOTE | 2017-03-01 09:43 | HHI.PR ---
Subjective Remarks Follow-up CVA. Discharge held yesterday because of recurrent left-sided numbness. Repeat head CT negative. No recurrence of numbness. She has been ambulating in the hallway without any problems. She wants to go home aware Holter monitor results are pending. Telemetry shows sinus rhythm. Seen with daughter. Discussed with RN Objective Vitals Vital Signs Date Time Temp Pulse Resp B/P Pulse Ox O2 Delivery O2 Flow Rate FiO2 03/01/17 08:00 98.2 77 18 130/77 99 03/01/17 07:30 Room Air 03/01/17 04:00 97.8 65 18 126/59 96 03/01/17 00:00 97.9 64 18 138/70 96 02/28/17 21:00 64 02/28/17 21:00 Room Air 02/28/17 20:00 97.8 63 18 118/58 95 02/28/17 18:14 98 21 02/28/17 16:00 97.9 65 18 161/77 98 02/28/17 14:00 97.9 71 20 126/70 02/28/17 11:40 97.9 78 17 165/68 96 02/28/17 10:48 21 I/O 02/28/17 02/28/17 02/28/17 03/01/17 03/01/17 03/01/17 07:00 15:00 23:00 07:00 15:00 23:00 Intake Total 980 ml 480 ml 240 ml 120 ml Output Total 800 ml 1 ml Balance 180 ml 479 ml 240 ml 120 ml Intake Oral 980 ml 480 ml 240 ml 120 ml Output Urine Total 800 ml Stool Total 1 ml # Voids 1 2 2 1 # Bowel Movements 0 0 0 Result Diagram: 02/27/17 1300 02/27/17 1300 Imaging Last Impressions Head Magnetic Resonance Angiography 02/28/17 0000 Signed Impressions: Service Date/Time: Tuesday, February 28, 2017 08:42 - CONCLUSION: 1. Negative examination. Tor Escoto MD Head CT 02/28/17 0000 Signed Impressions: Service Date/Time: Tuesday, February 28, 2017 17:39 - CONCLUSION: Stable examination without acute hemorrhage or mass effect. Sang South MD Brain MRI 02/28/17 0000 Signed Impressions: Service Date/Time: Tuesday, February 28, 2017 08:42 - CONCLUSION: 1. Punctate area of lacunar infarct in the centrum semiovale on the right. 2. 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 This measures 6 mm in maximum thickness. Tor Escoto MD Chest X-Ray 02/27/17 1257 Signed Impressions: Service Date/Time: Monday, February 27, 2017 13:04 - CONCLUSION: 1. No acute cardiopulmonary disease. Valdo Chahal MD Carotid Artery Ultrasound 02/27/17 0000 Signed Impressions: Service Date/Time: Monday, February 27, 2017 17:22 - CONCLUSION: No evidence of flow-limiting carotid stenosis. Kevin Mujica MD Objective Remarks GENERAL: This is a well-nourished, younger than stated age, well-developed patient, in no apparent distress. SKIN: No rashes, ecchymoses or lesions. Cool and dry. HEAD: Atraumatic. Normocephalic. No temporal or scalp tenderness. EYES: Pupils equal round and reactive. Extraocular motions intact. No scleral icterus. No injection or drainage. ENT: Nose without bleeding. Throat without erythema. Uvula midline. Airway patent. NECK: Trachea midline. No JVD or lymphadenopathy. CARDIOVASCULAR: Regular rate and rhythm without murmurs, gallops, or rubs. RESPIRATORY: Expiratory wheezes. No rales, or rhonchi. GASTROINTESTINAL: Abdomen soft, nondistended. Left lower quadrant tenderness to palpation. Bowel sounds active 4 MUSCULOSKELETAL: Extremities without clubbing, cyanosis, or edema. NEUROLOGICAL: Awake and alert. Cranial nerves II through XII intact. No motor deficits. Normal speech Procedures none A/P Problem List: (1) CVA (cerebral vascular accident) ICD Code: I63.9 Status: Acute (2) Chest pain ICD Code: R07.9 Status: Acute (3) DDD (degenerative disc disease), cervical ICD Code: M50.30 Status: Acute Assessment and Plan Patient is a 61-year-old female with primary medical history of hypertension, hyperlipidemia, osteoarthritis, COPD, anxiety who came into the hospital for evaluation of left-sided weakness and numbness. CVA with small right lacunar infarct. Telemetry without arrhythmia. Discussed with neurology, patient can be discharged if she remains stable and echocardiogram unremarkable. Holter completed with results pending. Discontinue permissive hypertension and restart BP medication losartan with hold parameters. Continue aspirin and statin. A1c 5.4. Risk factor modification. Patient to follow-up Holter monitor results with PCP. No driving for now - PT/OT/ST to follow Chest pain, ruled out for ACS - Aspirin 325 mg daily - Needs stress test when cleared by neurology HTN - Restart ARB Hypokalemia - Potassium replacement done Hyperglycemia -A1c 5.4 Alcohol Use, almost daily - CIWA DVT prop SCDs, hold off with chemical prophylaxis for now until cleared by neurology. Patient ambulatory Discharge Planning Discharge patient to home with home care physical therapy in stable condition Condition on discharge: Improved Regular Diet as tolerated heart healthy Ad Beatris activity no driving Rx written: Aspirin, thiamine and folic acid Follow-up with primary care physician in one week Problem Qualifiers (1) CVA (cerebral vascular accident): Qualified Code: I63.9 - Cerebrovascular accident (CVA), unspecified mechanism (2) Chest pain: Qualified Code: R07.9 - Chest pain, unspecified type Markus Scott MD Mar 01, 2017 09:43
--- NOTE | 2017-03-01 10:32 | HHI.PR ---
Review/Management Diagnosis Acute ischemic lacunar infarct at left centrum semiovale H/o HTN HLD COPD Plan -Aspirin 81mg daily - Statin - Outpatient Holter monitor - PT/OT, recommendations are appreciated - Stable from the neurology strand point - Needs rehab/PT,OT -Please call for questions Diagnosis/Plan: Subjective Subjective Comments No acute events reported Patient states that numbness has subsided on the left side Weakness over the left UE&LE Denies face numbness, difficulty in speech or swallowing Walked this am with PT MRI revealed acute left ischemic infarction at centrum semiovale MRA head is unremarkable Cardiac ECHO EF 50-55% CUS is unremarkable for a significant stenosis Active Medications Current Medications Medications (Trade) Dose Ordered Sig/James Route Start Time Stop Time Status Last Admin (NS Flush) 2 ml BID IV FLUSH 02/27/17 21:00 02/28/17 20:52 (NS Flush) 2 ml UNSCH PRN IV FLUSH 02/27/17 15:45 (Vasotec Inj) 1.25 mg Q4H PRN IV 02/27/17 15:45 (Aspirin) 325 mg DAILY PO 02/28/17 09:00 03/01/17 08:18 (D50w (Vial) Inj) 50 ml UNSCH PRN IV PUSH 02/27/17 15:45 (Glucagon Inj) 1 mg UNSCH PRN OTHER 02/27/17 15:45 (Ventolin Hfa Inh) 2 puff Q4H PRN INH 02/27/17 16:00 (Symbicort 80-4.5 Mcg Inh) 2 puff Q12HR INH 02/27/17 21:00 03/01/17 09:40 (Valium) 5 mg BID PRN PO 02/27/17 15:45 (Spiriva Inh) 18 mcg DAILY INH 02/28/17 09:00 03/01/17 09:39 ([place] 7.5-325 Mg) 1 tab Q8H PRN PO 02/27/17 16:00 03/01/17 08:16 (Pravachol) 40 mg DAILY PO 02/28/17 09:00 03/01/17 08:17 (Tylenol) 650 mg Q4H PRN PO 02/27/17 15:45 (Zofran Inj) 4 mg Q6H PRN IVP 02/27/17 15:45 (Narcan Inj) 0.4 mg UNSCH PRN IV 02/27/17 15:45 (Jill-Colace) 1 tab BID PO 02/27/17 21:00 03/01/17 08:17 (Milk Of Magnesia Liq) 30 ml Q12H PRN PO 02/27/17 15:45 (Senokot) 17.2 mg Q12H PRN PO 02/27/17 15:45 (Lactulose Liq) 30 ml DAILY PRN PO 02/27/17 15:45 (Folate) 1 mg DAILY PO 03/01/17 09:00 03/06/17 08:59 03/01/17 08:18 (Vitamin B1) 100 mg DAILY PO 03/01/17 09:00 03/01/17 08:17 (Theragran M Tab) 1 tab DAILY PO 03/01/17 09:00 03/06/17 08:59 03/01/17 08:17 (Romazicon Inj) 0.2 mg Q1M PRN IV PUSH 02/28/17 09:45 (Ativan) 1 mg Q4H PRN PO 02/28/17 09:45 (Ativan Inj) 1 mg Q4H PRN IV PUSH 02/28/17 09:45 (Ativan) 2 mg Q2H PRN PO 02/28/17 09:45 (Ativan Inj) 2 mg Q2H PRN IV PUSH 02/28/17 09:45 (Ativan Inj) 2 mg Q1H PRN IV PUSH 02/28/17 09:45 (Ativan Inj) 2 mg Q15M PRN IV PUSH 02/28/17 09:45 (Haldol Inj) 2 mg Q15M PRN IM 02/28/17 09:45 (PROzac) 20 mg DAILY PO 03/01/17 09:00 03/01/17 08:17 (Cozaar) 25 mg DAILY PO 02/28/17 14:00 Hold Allergies Allergies Coded Allergies Nonsteroidal Anti-Inflammatory Agts (Verified Allergy, Unknown, 02/27/17) Review of Systems All other ROS: ROS reviewed as documented in chart Exam I&O / VS 02/28/17 02/28/17 03/01/17 15:00 23:00 07:00 Intake Total 480 ml 240 ml 120 ml Output Total 1 ml Balance 479 ml 240 ml 120 ml Intake Oral 480 ml 240 ml 120 ml Stool Total 1 ml # Voids 2 2 1 # Bowel Movements 0 0 Vital Signs Date Time Temp Pulse Resp B/P Pulse Ox O2 Delivery O2 Flow Rate FiO2 03/01/17 08:00 98.2 77 18 130/77 99 03/01/17 07:30 Room Air 03/01/17 04:00 97.8 65 18 126/59 96 03/01/17 00:00 97.9 64 18 138/70 96 02/28/17 21:00 64 02/28/17 21:00 Room Air 02/28/17 20:00 97.8 63 18 118/58 95 02/28/17 18:14 98 21 02/28/17 16:00 97.9 65 18 161/77 98 02/28/17 14:00 97.9 71 20 126/70 02/28/17 11:40 97.9 78 17 165/68 96 02/28/17 10:48 21 General: Alert and Oriented, No acute distress Eye: PERRL, EOMI, Normal conjuctiva, Vision unchanged Respiratory: Lungs CTA, Non-labored respirations Cardiology: Normal rate, Normal peripheral perfusion Musculoskeletal: ROM Neurologic: Alert, Oriented, Normal sensory, CN II-XII intact, Normal DTR's, Other (Left shoulder abd ,wrist ext and hip flex5-/5, foot dorsiflex 4+/5, the remaining of the left side and the entire rigfht side is 5/5. no abnormal movements) Objective Radiology Results Last 72 hours Impressions Head Magnetic Resonance Angiography 02/28/17 0000 Signed Impressions: Service Date/Time: Tuesday, February 28, 2017 08:42 - CONCLUSION: 1. Negative examination. Tor Escoto MD Head CT 02/28/17 0000 Signed Impressions: Service Date/Time: Tuesday, February 28, 2017 17:39 - CONCLUSION: Stable examination without acute hemorrhage or mass effect. Sang South MD Brain MRI 02/28/17 0000 Signed Impressions: Service Date/Time: Tuesday, February 28, 2017 08:42 - CONCLUSION: 1. Punctate area of lacunar infarct in the centrum semiovale on the right. 2. 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 This measures 6 mm in maximum thickness. Tor Escoto MD Head CT 02/27/17 1257 Signed Impressions: Service Date/Time: Monday, February 27, 2017 14:04 - CONCLUSION: Unremarkable study. Sang South MD ADDENDUM: I spoke with Dr. Keith about this patient. 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 There is a small extension of fatty density along the superior margin of the corpus callosum this could suggest previous rupture. I do not see evidence of small fat globules over the high convexities. MRI would be of benefit for further assessment. Tor Escoto MD Chest X-Ray 02/27/17 1257 Signed Impressions: Service Date/Time: Monday, February 27, 2017 13:04 - CONCLUSION: 1. No acute cardiopulmonary disease. Valdo Chahal MD Carotid Artery Ultrasound 02/27/17 0000 Signed Impressions: Service Date/Time: Monday, February 27, 2017 17:22 - CONCLUSION: No evidence of flow-limiting carotid stenosis. Kevin Mujica MD Ossi,Daniel Aragon MD Mar 01, 2017 10:32
[2017-03-01 12:03] VITALS: O2SAT 97
--- NOTE | 2017-03-03 11:18 | HM ---
Date Performed: 02/28/2017 Time Performed: 12:18:00 HOOKUP DATE: 02/28/17 12:18:00 PM Wed ANALYSIS START TIME: 02/28/2017 12:23:00 PM ANALYSIS END TIME: 03/01/2017 11:27:07 AM PATIENT AGE: 61 PATIENT HEIGHT PATIENT WEIGHT DRUG LIST PATIENT DIAGNOSIS: acute ischemic CVA TEST NARRATIVE: The patient's average heart rate was 70 BPM. No episodes of tachycardia wer e noted. No episodes of bradycardia were noted. No pauses exceeding 2.0 seconds were noted. 1079 ventricular ectopics, which represented 1% of the total beat count, were noted. The highest william tricular ectopic frequency occurred from 12:00 PM to 01:00 PM Wed. During this time 203 VE(s) occurr ed. Ventricular ectopics were observed as 1021 isolated beat(s) and as 29 couplet(s). No runs were noted. No supraventricular ectopics were noted. No episodes of ST depression (defined as -1.0 mm or more) were noted in channel 1. No episodes of ST depression (defined as -1.0 mm or more) were noted in channel 2. No episodes of ST depression (defined as -1.0 mm or more) were noted in channel 3. TEST INTERPRETATION: Sinus rhythm Occasional PVCs in singlets, couplets, and trigeminy pattern Signed by : Marshal Wakefield
== END 2017-03-01 12:33 | disposition home health service (06) | DRG 66 ==
LOC: NEPE 12:22 → NEDA 15:09 → N04B 22:10
PROVIDERS: ADMIT Internal Medicine; ATTEND Internal Medicine
DX: I63.9 Cerebral infarction, unspecified (principal); I48.0 Paroxysmal atrial fibrillation; I10 Essential (primary) hypertension; J44.9 Chronic obstructive pulmonary disease, unspecified; M41.9 Scoliosis, unspecified; E78.5 Hyperlipidemia, unspecified; F41.9 Anxiety disorder, unspecified; M19.90 Unspecified osteoarthritis, unspecified site; M50.30 Other cervical disc degeneration, unspecified cervical region; Z79.82 Long term (current) use of aspirin; E87.6 Hypokalemia; R73.9 Hyperglycemia, unspecified
CPT/HCPCS: 70450; 70544; 70551; 71010; 80048; 80061; 80307; 82550; 82948; 83036; 83735; 84484; 85025; 85610; 85730; 90732; 93005; 93225; 93226; 93306; 93880; J7030

== ENCOUNTER → 2017-11-01 | Outpatient (CLI) | payer MEDICARE, MEDICAID ==
[~2017-11-01] MED LIST changes: +ASPI-183 PO; +FOLI1TAB6 PO; +GETGO ROLLING W1 MI1; +LOSA25TA PO; -OXYC1TAB36 PO; +THIA100 PO; +ZOCO20TA PO
[2017-11-01 09:18] LABS: AUTOMATED NEUTROPHIL # 5.8 TH/MM3 (1.8-7.7); BASOPHIL # 0.1 TH/MM3 (0-0.2); BASOPHIL % 0.8 % (0.0-2.0); EOSINOPHIL # 0.2 TH/MM3 (0-0.4); EOSINOPHIL % 2.3 % (0.0-4.0); HEMATOCRIT 39.2 % (35.0-46.0); HEMOGLOBIN 13.5 GM/DL (11.6-15.3); LYMPH % 17.1 % (9.0-44.0); LYMPHOCYTE # 1.4 TH/MM3 (1.0-4.8); MEAN CORPUSCULAR HGB CONC 34.5 % (32.0-36.0); MEAN PLATELET VOLUME 7.3 FL (7.0-11.0); MONO % 9.8 % (0.0-8.0); MONOCYTE # 0.8 TH/MM3 (0-0.9); PLATELET COUNT 272 TH/MM3 (150-450); RED BLOOD COUNT 4.36 MIL/MM3 (4.00-5.30); RED CELL DISTRIBUTION WIDTH 12.8 % (11.6-17.2); WHITE BLOOD COUNT 8.3 TH/MM3 (4.0-11.0)
[2017-11-01 09:40] LABS: ALT (GPT) 36 U/L (10-53); CHOLESTEROL 189 MG/DL (120-200); TRIGLYCERIDES 158 MG/DL (42-150)
[2017-11-01 09:48] LABS: ALKALINE PHOSPHATASE 64 U/L (45-117); CHOLESTEROL/ HDL RATIO 2.48 RATIO; FREE T4 0.91 NG/DL (0.76-1.46); LDL CHOLESTEROL 81 MG/DL (0-99); TOTAL BILIRUBIN ADULT 0.4 MG/DL (0.2-1.0); TOTAL PROTEIN 7.9 GM/DL (6.4-8.2)
[2017-11-01 09:49] LABS: ALBUMIN 3.9 GM/DL (3.4-5.0); AST (GOT) 26 U/L (15-37); BICARBONATE 27.9 MEQ/L (21.0-32.0); BLOOD UREA NITROGEN 15 MG/DL (7-18); CALCIUM 9.4 MG/DL (8.5-10.1); CHLORIDE 104 MEQ/L (98-107); CREATININE 0.84 MG/DL (0.50-1.00); GLOMERULAR FILTRATION RATE 69 ML/MIN (>89); GLUCOSE,FASTING 113 MG/DL (74-99); SODIUM (NA) 140 MEQ/L (136-145)
== END ==
LOC: CLAB 08:48
PROVIDERS: ATTEND Family Medicine
DX: I10 Essential (primary) hypertension (principal); M85.80 Other specified disorders of bone density and structure, unspecified site; E78.5 Hyperlipidemia, unspecified; R53.83 Other fatigue
CPT/HCPCS: 36415; 80053; 80061; 82306; 84439; 84443; 85025

== ENCOUNTER → 2017-11-21 | Outpatient (CLI) | payer MEDICARE, OTHER ==
--- NOTE | 2017-11-23 11:20 | RSPPFT ---
DATE OF PROCEDURE: 11/21/17 COMMENTS: Spirometry with FVC of 1.9 predicted 2.8, FEV1 of 1.1 predicted 2.2, FEV1/FVC ratio 56% predicted 83%. Post-bronchodilator FVC increases to 2.2. Air trapping is present with RV at 3.4 predicted 1.9. DLCO is 65% of predicted. IMPRESSION: On the basis of the above, patient has an obstructive defect with responsiveness to acutely inhaled bronchodilator. Air trapping is present. There is a decrease in the DLCO.
== END ==
LOC: HRSP 13:01
PROVIDERS: ATTEND Internal Medicine Pulmonary Disease
DX: J44.9 Chronic obstructive pulmonary disease, unspecified (principal); G47.30 Sleep apnea, unspecified
CPT/HCPCS: 36415; 36600; 82785; 82805; 84443; 94060; 94618; 94726; 94729

== ENCOUNTER → 2017-11-21 | Outpatient (CLI) | payer MEDICARE, MEDICAID | LOC: CLAB 13:52 | PROVIDERS: ATTEND Internal Medicine Pulmonary Disease | DX: J44.9 Chronic obstructive pulmonary disease, unspecified (principal); G47.30 Sleep apnea, unspecified | CPT/HCPCS: 36415; 82785; 84443; 94618 ==